=== PATIENT | male | born 1950 | race Caucasian/White ===

== ENCOUNTER 2024-02-10 16:42 | Emergency (ER) | payer OTHER ==
[~2024-02-10] VITALS: Ht 175.3 cm; Wt 81.6 kg
[2024-02-10 16:42] VITALS: BP_SYST 134; PULSE 72; RESP 18; TEMP 97.8; O2SAT 94
[2024-02-10] MEDS: LIDOCAINE 1% 10 MG/ML, 20 ML MDV INJ ONE (17:14)
[2024-02-10] MEDS: DIPHTH,PERTUSS(ACELL),TET VAC 0.5 ML VIAL (Tdap) I.M. ONE (17:18)
[2024-02-10 19:36] VITALS: BP_SYST 133; PULSE 81; RESP 19; TEMP 97.8; O2SAT 94
== END 2024-02-10 19:35 | disposition home or self-care (01) ==
LOC: SED 16:42
DX: S81.811A Laceration without foreign body, right lower leg, initial encounter (principal); Z23 Encounter for immunization; I48.91 Unspecified atrial fibrillation; W05.0XXA Fall from non-moving wheelchair, initial encounter; Y93.89 Activity, other specified; Y92.89 Other specified places as the place of occurrence of the external cause; Y99.8 Other external cause status
CPT/HCPCS: 90715; 99283